=== PATIENT | male | born 1965 | race African-American/Black ===

== ENCOUNTER 2019-10-12 03:55 | Inpatient (IN) | payer OTHER ==
--- NOTE | 2019-10-12 05:44 | PDOC.FPRHP ---
- History of Present Illness Chief Complaint: Transfer COVID + History of Present Illness: Pt is a 54 yo male who presents by direct transfer from [facility] secondary to acute hypoxic respiratory failure secondary to suspected COVID-19. Symptoms started a week ago with non-productive cough, fever, SOB. He was seen [place] and swabbed 3 days ago at [facility]. At this time he was started on codeine cough suppressant and prednisone. Fever has been intermittently high with max about 101F. He denies N/V, diarrhea. He came in today due to his shortness of breath and waking up at night coughing. He endorsed fatigue as well. His and son tested positive to COVID as well, unsure how they were exposed. They have been trying to isolate from one another. He denies being short of breath with conversation, but has to take pauses when talking. He does feel better with NC oxygen that was started at [facility]. Denies any chest pain or palpitations, abdominal pain. Patient does not have a PCP. Of note at [facility], patient had recorded temp of 100.8F oral, satting 86% on RA. ED Course: At [facility] he was administered albuterol with minimal relief. - Allergies/Adverse Reactions Allergies Allergy/AdvReac Type Severity Reaction Status Date / Time No Known Allergies Allergy Verified 10/12/19 05:44 - Home Medications Medication Instructions Recorded Confirmed Type No Known 10/12/19 10/12/19 History - History PMHx: denies PSHx: denies FHx: denies Social: denies alcohol, tobacco, drug use Allergies: denies - Review of Systems General: reports: fever/chills, weight/appetite/sleep changes, fatigue Eyes: denies: eye pain, vision changes ENT: denies: nasal congestion, rhinorrhea Respiratory: reports: cough, congestion, shortness of breath, exercise intolerance Cardiovascular: denies: chest pain, palpitation, edema Gastrointestinal: denies: nausea, vomiting, diarrhea, constipation Genitourinary: denies: dysuria, polyuria Skin: denies: rashes, lesions Musculoskeletal: denies: pain, stiffness Neurological: denies: numbness, syncope Psychological: denies: anxiety, depression - Vital signs BP: 139/85 HR: 109 RR: 42 Tmax: 99.3 Pox: 94% on 3L Wt: 88 kg - Physical Exam Constitutional: NAD, awake, alert and oriented HEENT: normocephalic and atraumatic, PERRLA Neck: FROM, no JVD Heart: RRR, normal S1/S2, no murmurs/rubs/gallops, pulses present -Lungs: Diminished air movement bilaterally, gets SOB when talking in multiple sentences Abdomen: soft, non-tender, bowel sounds present Musculoskeletal: normal structure, normal tone Neurological: no focal deficit, CN II-XII intact Skin: no rash/lesions -Skin: dry mucous membranes Heme/Lymphatic: no purpura, no petechia Psychiatric: normal mood and affect, good judgment and insight FMR H&P: Results - Labs Result Diagrams: 10/12/19 08:17 10/12/19 08:17 - Radiology Interpretation Chest x-ray Status: report reviewed by me Additional comment: Diffuse patchy infiltrates bilateral - greatest peripherally c/w COVID19 FMR H&P: A/P - Problem List (1) Acute respiratory failure with hypoxia Status: Acute Code(s): J96.01 - ACUTE RESPIRATORY FAILURE WITH HYPOXIA (2) Person under investigation for COVID-19 Status: Acute Code(s): Z20.828 - CONTACT W AND EXPOSURE TO OTH VIRAL COMMUNICABLE DISEASES - Plan Pt is a 54 yo male w/o significant PMH here for acute hypoxic respiratory failure secondary to Covid: Acute Hypoxic Respiratory Failure 2/2 Suspected COVID 19 Patient with + COVID exposures with multiple family members in the house. Swabbed at [facility] earlier this week. CXR showing patchy opacities in both lungs greatest peripherally. - Will try to acquire COVID test results from [facility], but if result will take too long to obtain can re-swab here. - Monitor O2 saturations - ABG pending. RR recorded as 42. May need to be upgraded to Bipap pending ABG. - Supplement oxygen as needed. If patient decompensates, consider pulm consult - LDH, Procalcitonin, Ferritin, CRP, Lactic Acid, D-dimer pending - EKG pending, patient mildly tachy. Will also give a 1L bolus and continue on mIVF as patient dry on exam. - Consider repeating CXR tomorrow - Start azithromycin, continue steroids as patient very tight. - Tylenol PRN for fever - Droplet precautions Diet: Reg Fluids: maintenance VTE: th lovenox Code: Full Dispo: admit to medical inpatient Case discussed with Dr. Rivers The above was scribed by Dr. Kishan Bailey and edited by Renita Gonzales PGY2. Patient seen and examined by Renita Gonzales PGY2. FMR H&P: Upper Level - Plan Date/Time: 10/12/19 8242 I, [], have evaluated this patient and agree with findings/plan as outlined by digital media intern resident. Pertinent changes/additions are listed here. Addendum - Attending - Attending Attestation Date/Time: 10/12/19 1006 I personally evaluated the patient and discussed the management with Dr. Bailey /Christian. I agree with the History, Examination, Assessment and Plan documented above with any addition or exceptions noted below.
[2019-10-12] MEDS ORDERED: Acetaminophen 325 MG TAB PO PRN (06:11)
[2019-10-12] MEDS ORDERED: Lactated Ringer's 1,000 ML IV SCH ×2 (06:15→13:45)
[2019-10-12] MEDS ORDERED: Azithromycin 250 MG TAB PO SCH (06:30)
[2019-10-12] MEDS: Lactated Ringer's 1,000 ML IV SCH ×2 (07:40→18:40)
[2019-10-12 08:29] LABS: #Basophils 0.1 thou/uL (0.0-0.2); #Lymphocytes 0.5 thou/uL (1.20-3.40); #Monocytes 0.2 thou/uL (0.11-0.59); #Neutrophils 5.2 thou/uL (1.40-6.50); %Basophils 1.5 % (0.0-1.0); %Eosinophils 0.1 % (0.0-10.0); %Lymphocytes 8.3 % (21.0-51.0); %Monocytes 3.7 % (0.0-10.0); %Neutrophils 86.4 % (42.0-75.0); Hemoglobin 12.8 g/dL (14.0-18.0); Mean Corpuscular Hemoglobin 27.6 pg (27.0-31.0); Mean Corpuscular Volume 86.5 fL (78.0-98.0); Mean Platelet Volume 9.8 fL (7.4-10.4); Platelet Count 150 thou/uL (130-400); RBC Distribution Width 11.3 % (11.5-14.5); Red Blood Cell (RBC) Count 4.64 mill/uL (4.70-6.10)
[2019-10-12 08:46] LABS: Lactic Acid 1.6 mmol/L (0.5-2.2)
[2019-10-12 08:51] LABS: ALT (SGPT) 36 U/L (8-55); AST (SGOT) 41 U/L (5-34); Albumin 3.8 g/dL (3.5-5.0); Alkaline Phosphatase 78 U/L (40-110); Anion Gap 17 mmol/L (10-20); BUN (Urea Nitrogen) 10 mg/dL (8.4-25.7); Bilirubin, Total 0.7 mg/dL (0.2-1.2); Calc. Creatinine Clearance 115 mL/min (70-130); Calcium 8.9 mg/dL (7.8-10.44); Carbon Dioxide 23 mmol/L (22-29); Chloride 97 mmol/L (98-107); Estimated GFR-MDRD Greater than 90; Globulin 3.5 g/dL (2.4-3.5); Glucose 311 mg/dL (70-105); Potassium 4.5 mmol/L (3.5-5.1); Protein, Total 7.3 g/dL (6.0-8.3); Sodium 132 mmol/L (136-145)
[2019-10-12] MEDS ORDERED: Enoxaparin Sodium 40 MG/0.4 ML SYRINGE SC SCH ×2 (09:00)
[2019-10-12] MEDS ORDERED: Dexamethasone 4 MG in Sodium Chloride 0.9% 50 ML IVPB SCH (09:00)
[2019-10-12] MEDS: Enoxaparin Sodium 100 MG/ML SYRINGE SC SCH ×2 (10:32→19:27)
[2019-10-12 17:38] LABS: Hemoglobin A1c 9.5 % (4.0-6.0)
[2019-10-12] MEDS ORDERED: Dextrose 50% Abboject 50 ML SYRINGE SLOW IVP PRN (17:48)
[2019-10-12] MEDS ORDERED: Dextrose 5% in Water 1,000 ML IV PRN (17:48)
[2019-10-12] MEDS: Dexamethasone 4 mg/ml Vial SLOW IVP SCH (19:28)
[2019-10-12] MEDS: HumaLOG 300 UNITS/3 ML VIAL SC PRN (19:54)
[2019-10-13] MEDS: Lactated Ringer's 1,000 ML IV SCH ×2 (02:05→07:27)
[2019-10-13 04:49] LABS: #Lymphocytes 0.8 thou/uL (1.20-3.40); #Monocytes 0.8 thou/uL (0.11-0.59); #Neutrophils 5.5 thou/uL (1.40-6.50); %Basophils 0.1 % (0.0-1.0); %Eosinophils 0.3 % (0.0-10.0); %Lymphocytes 11.1 % (21.0-51.0); %Neutrophils 77.5 % (42.0-75.0); Hemoglobin 11.9 g/dL (14.0-18.0); Mean Platelet Volume 9.7 fL (7.4-10.4); Platelet Count 200 thou/uL (130-400); RBC Distribution Width 11.2 % (11.5-14.5); Red Blood Cell (RBC) Count 4.24 mill/uL (4.70-6.10)
[2019-10-13 05:12] LABS: ALT (SGPT) 42 U/L (8-55); AST (SGOT) 40 U/L (5-34); Albumin 3.5 g/dL (3.5-5.0); Alkaline Phosphatase 74 U/L (40-110); Anion Gap 18 mmol/L (10-20); BUN (Urea Nitrogen) 16 mg/dL (8.4-25.7); Bilirubin, Total 0.5 mg/dL (0.2-1.2); Calc. Creatinine Clearance 102 mL/min (70-130); Calcium 8.8 mg/dL (7.8-10.44); Carbon Dioxide 22 mmol/L (22-29); Chloride 100 mmol/L (98-107); Estimated GFR-MDRD Greater than 90; Globulin 3.4 g/dL (2.4-3.5); Glucose 346 mg/dL (70-105); Potassium 4.7 mmol/L (3.5-5.1); Protein, Total 6.9 g/dL (6.0-8.3); Sodium 135 mmol/L (136-145)
[2019-10-13] MEDS: HumaLOG 300 UNITS/3 ML VIAL SC PRN ×4 (06:26→19:50)
[2019-10-13] MEDS ORDERED: Enoxaparin Sodium 100 MG/ML SYRINGE SC SCH (06:49)
--- NOTE | 2019-10-13 06:49 | PDOC.FM ---
- Subjective Subjective: Feeling much better today. Denies SOB, wearing O2. - Objective MAR Reviewed: Yes Vital Signs & Weight: Vital Signs (12 hours) Temp Pulse Resp BP Pulse Ox 10/13/19 02:05 98.1 F 94 37 H 138/85 93 L 10/12/19 19:37 98.8 F 103 H 39 H 141/85 H 94 L Weight Weight 88.677 kg I&O: 10/11/19 10/12/19 10/13/19 06:59 06:59 06:59 Intake Total 6828 Output Total 3275 Balance 3553 Result Diagrams: 10/13/19 04:32 10/13/19 04:32 Phys Exam - Physical Examination Constitutional: NAD HEENT: moist MMs Neck: supple Respiratory: no wheezing, clear to auscultation bilateral Cardiovascular: RRR Gastrointestinal: soft, non-tender Musculoskeletal: no edema Neurological: moves all 4 limbs Psychiatric: normal affect, A&O x 3 Skin: normal turgor Dx/Plan - Plan Plan: 54yo previously healthy male admitted for acute hypoxic respiratory failure secondary to viral pneumonia Acute Hypoxic Respiratory Failure 2/2 Suspected COVID 19 - Patient with multiple + COVID exposures. - COVID swab pending. Continue isolation precautions - Trend D-dimer - Continue Azithromycin and Decadron - Tylenol PRN for fever Diabetes Mellitus, new dx - A1c 9.5% - Start Metformin and Lantus 10U daily - Accuchecks and SSI. - Diabetes education DVT ppx: Lovenox BID Code Status: Full
[2019-10-13] MEDS: Enoxaparin Sodium 40 MG/0.4 ML SYRINGE SC SCH ×2 (08:11→19:47)
[2019-10-13] MEDS: Dexamethasone 4 mg/ml Vial SLOW IVP SCH ×2 (08:11→19:48)
[2019-10-13] MEDS: metFORMIN XR 500 MG TAB PO SCH (08:11)
[2019-10-13] MEDS ORDERED: Azithromycin 250 MG TAB PO SCH (09:00)
[2019-10-13] MEDS ORDERED: Insulin Glargine 10 UNITS in Pre-Filled Syringe 1 EACH SC SCH (09:00)
--- NOTE | 2019-10-13 11:45 | PRG ---
DATE OF SERVICE: 10/13/2019 Please see the note from Dr. Evelin Webber, for which I agree. This is a patient, who comes in for COVID assumed infection. Multiple COVID infections in his household and symptom-peng. COVID seems to be positive as far as the symptoms anyway, but the test is still pending. Chest x-ray shows diffuse infiltrates. He is on azithromycin. We will have him started on Decadron. Not requiring too much oxygen in general, improving on exam, not too bad as far as his lungs go, so we will continue supportive management. Awaiting on the COVID test results. Job ID: [id number]
[2019-10-13 13:16] LABS: SARS-CoV-2 MS2 Positive; SARS-CoV-2 N Gene Positive; SARS-CoV-2 S Gene Positive; SARS-CoV-2 orf1ab Positive
[2019-10-14 05:32] LABS: Anion Gap 20 mmol/L (10-20); Carbon Dioxide 22 mmol/L (22-29); Chloride 99 mmol/L (98-107); Potassium 4.1 mmol/L (3.5-5.1); Sodium 137 mmol/L (136-145)
[2019-10-14 05:33] LABS: ALT (SGPT) 74 U/L (8-55); AST (SGOT) 69 U/L (5-34); Albumin 3.6 g/dL (3.5-5.0); Alkaline Phosphatase 74 U/L (40-110); BUN (Urea Nitrogen) 14 mg/dL (8.4-25.7); Bilirubin, Total 0.6 mg/dL (0.2-1.2); Calc. Creatinine Clearance 105 mL/min (70-130); Calcium 8.7 mg/dL (7.8-10.44); Estimated GFR-MDRD Greater than 90; Globulin 3.4 g/dL (2.4-3.5); Glucose 315 mg/dL (70-105)
[2019-10-14] MEDS: HumaLOG 300 UNITS/3 ML VIAL SC PRN ×4 (06:13→21:03)
--- NOTE | 2019-10-14 07:00 | PDOC.FM ---
- Subjective Subjective: Overnight Mr Jackson began satting 80's on 6L NC therefore was upgraded to HFNC. He reports he is feeling much more comfortable and less SOB. He is interested in receiving convalescent plasma and remdesivir. - Objective MAR Reviewed: Yes Vital Signs & Weight: Vital Signs (12 hours) Temp Pulse Resp BP Pulse Ox 10/14/19 03:35 98.5 F 90 34 H 146/95 H 99 10/13/19 23:27 98.6 F 93 31 H 158/97 H 98 10/13/19 21:33 94 L 10/13/19 19:50 97.9 F 103 H 28 H 137/88 91 L Weight Weight 85.366 kg I&O: 10/12/19 10/13/19 10/14/19 06:59 06:59 06:59 Intake Total 6828 6320 Output Total 3275 7815 Balance 2303 1710 Result Diagrams: 10/13/19 04:32 10/14/19 04:39 Phys Exam - Physical Examination Constitutional: NAD HEENT: moist MMs Neck: supple Respiratory: no wheezing, clear to auscultation bilateral Cardiovascular: RRR Gastrointestinal: soft Musculoskeletal: no edema Neurological: moves all 4 limbs Psychiatric: normal affect, A&O x 3 Skin: no rash Dx/Plan - Plan Plan: 54yo previously healthy male admitted for acute hypoxic respiratory failure secondary to viral pneumonia Acute Hypoxic Respiratory Failure 2/2 COVID 19 - Continue isolation precautions - Trend D-dimer - Continue Decadron. D/c Azithromycin low suspicion for bacterial pneumonia - Consulted Pulm and ID for Remdesivir - Starting process for convalescent serum - Monitor respiratory status. Now on HFNC - Tylenol PRN for fever Diabetes Mellitus, new dx - A1c 9.5% - Start Metformin. Titrate Insulin up based on BG. Likely elevated due to steroids. - Accuchecks and SSI. - Diabetes education DVT ppx: Lovenox BID Code Status: Full
[2019-10-14] MEDS ORDERED: Insulin Glargine 15 UNITS in Pre-Filled Syringe 1 EACH SC SCH (09:00)
[2019-10-14] MEDS: Dexamethasone 4 mg/ml Vial SLOW IVP SCH ×2 (09:10→19:29)
[2019-10-14] MEDS: Enoxaparin Sodium 40 MG/0.4 ML SYRINGE SC SCH ×2 (09:10→19:29)
[2019-10-14] MEDS: metFORMIN XR 500 MG TAB PO SCH (09:10)
[2019-10-14] MEDS: Insulin Glargine 22 UNITS in Pre-Filled Syringe 1 EACH SC SCH (09:10)
--- NOTE | 2019-10-14 16:58 | PRG ---
DATE OF SERVICE: 10/14/2019 The patient was seen, evaluated, discussed, and examined with the residents. Please see Evelin Webber' progress note, for which I agree. No major changes on this gentleman. Still, I am going to likely put him on Remdesivir, continue the Decadron, and also considering convalescent plasma for him. We will get the ID and tower air traffic control specialist involved to help us with that. Unfortunately, oxygen requirement is still fairly high and so his inflammatory markers are still elevated. We will watch him closely to make sure he does not decompensate respiratory peng. Job ID: [id number]
--- NOTE | 2019-10-14 19:32 | CON ---
DATE OF CONSULTATION: 10/14/2019 CHIEF COMPLAINT: COVID pneumonia. HISTORY OF PRESENT ILLNESS: Mr. Jackson is a 54-year-old male who developed symptoms a week prior to presentation including cough, fever and shortness of breath. His and son had developed COVID prior to him. He had tests done [facility] 3 days prior to admission and was started on a cough suppressant and prednisone. He reports that his maximum fever was 101 Fahrenheit. He has had no nausea, vomiting, or diarrhea. There is no description of loss of smell or taste. His symptoms continued and he presented back to [facility]. On the day of admission, he was hypoxemic with saturation of 86% on room air and was again febrile to 100.8 degrees. He is transferred directly here for admission. Since admission, his COVID test has returned positive. He has been on Lovenox, steroids and azithromycin. He was receiving Ventolin tablets for unclear indication. His COVID test has returned positive and the Pulmonary service is consulted regarding remdesivir. SOCIAL HISTORY: The patient is a 54-year-old gentleman. He has no smoking history. ALLERGIES: HE HAS NO HOME MEDICATION ALLERGIES. PAST MEDICAL HISTORY: He has no history of diabetes, COPD, or heart disease. REVIEW OF SYSTEMS: Remarkable as above. FAMILY HISTORY: Noncontributory. PHYSICAL EXAMINATION: VITAL SIGNS: Blood pressure currently 146/90, afebrile, temperature 98.5, heart rate is 88, respirations 22, saturation is 97%, although he is currently on high-flow nasal cannula at 60% FiO2. GENERAL: He is mildly tachypneic and anxious. He has no oral Anjana. LUNGS: Bilateral rales without wheezing. HEART: Regular rate and rhythm. ABDOMEN: Soft. There is no organomegaly. He has no edema. LABORATORY DATA: Electrolytes today include sodium 137, potassium 4.1, chloride 99, CO2 is 22, BUN 14, creatinine 0.95, and glucose is 300. AST is 69, ALT is 74. His chest x-ray has shown bilateral interstitial infiltrates. IMPRESSION: 1. COVID pneumonia with high O2 demands currently at 60% high-flow nasal cannula. The patient does not have a contraindication to remdesivir. He may in fact meet inclusion criteria for convalescent serum. 2. Diabetes. The patient denied a history of diabetes on admission, but blood sugar is 300 even in the setting of oral steroids is not normal and would reflect an underlying risk factor for COVID infection. RECOMMENDATIONS: The patient is a candidate for remdesivir. He may additionally be a candidate for convalescent serum. At this point, we will continue his steroids, although he needs aggressive diabetic control. His condition is tenuous given his high FiO2 demands and he may well show further deterioration and could require ventilatory support. Pulmonary Service will continue to follow. Job ID: [id number]
--- NOTE | 2019-10-14 19:56 | CON ---
DATE OF CONSULTATION: 10/14/2019 REASON FOR CONSULTATION: COVID pneumonia. HISTORY OF PRESENT ILLNESS: A 54-year-old man no past medical history and familial transmission of COVID infection, both the and son. None of them had to be admitted, but he developed symptoms, he is not sure if it was in the 15 or of this month, he had initially cough, fever, and dyspnea and is given prednisone and codeine cough suppressant because dyspnea became worse, he eventually came to be admitted. No headaches. No chest pain or abdominal pain. No diarrhea. No genitourinary symptoms. Initial findings; O2 saturations were 94 on 3 L, temperature 99.3, heart rate 109, and respiratory rate 42. Lungs with diminished air movements bilaterally. Had difficulty in speaking in full sentences because of dyspnea. Abdomen was unremarkable. Other findings; white cell count 6.0, hemoglobin 12.8, and platelets 150 with 86% neutrophils. D-dimer is less than 0.27. Sodium 132, creatinine 0.9, AST 41, ALT 36, alkaline phosphatase 78, albumin 3.8, and COVID was detected on 26. He was swabbed outside the hospital. I do not know what the results of that were. Currently, Mr. Jackson is receiving high-flow O2 in the observation unit. He is awake, alert, and he is coughing intermittently, but no sputum production. REVIEW OF SYSTEMS: Other 10-point review of systems remarkable for dyspnea, but no other positive results. PAST MEDICAL HISTORY: Otherwise no past medical history reported. ALLERGIES: HE HAS NO KNOWN DRUG ALLERGIES. CURRENT MEDICATION LIST: Includes 1. Decadron. 2. Remdesivir. 3. Metformin. FAMILY HISTORY: COVID pneumonia in both and son, did not require admission and they are recovering now. PHYSICAL EXAMINATION: VITAL SIGNS: Temperature has been normal throughout the hospital stay here. Blood pressure 140/90, pulse 88, respirations are down to 22 per minute. He is on high-flow O2, saturating 97. HEENT: His ocular movements conjugate. LUNGS: Symmetric air entry with no wheezing or crackles. HEART: S1 and S2. Regular rate. ABDOMEN: Soft, not distended or tender. No ascites. No bladder distention. NEURO: Nonfocal. EXTREMITIES: No edema. Pulses 1+ in dorsalis pedis. LABORATORY DATA: Repeat labs showed white cell count 7.0, hemoglobin 11.9, and platelets 200. ASSESSMENT: COVID-19 pneumonia, severe on remdesivir and Decadron and enoxaparin b.i.d. Continue monitoring D-dimer, ferritin, and CRP every other day. Continue monitoring O2 sats and O2 supplementation requirements. Job ID: [id number] MTDD
[2019-10-15 05:17] LABS: ALT (SGPT) 62 U/L (8-55); AST (SGOT) 30 U/L (5-34); Albumin 3.6 g/dL (3.5-5.0); Alkaline Phosphatase 73 U/L (40-110); Anion Gap 14 mmol/L (10-20); BUN (Urea Nitrogen) 16 mg/dL (8.4-25.7); Bilirubin, Total 0.8 mg/dL (0.2-1.2); Calc. Creatinine Clearance 114 mL/min (70-130); Calcium 8.9 mg/dL (7.8-10.44); Carbon Dioxide 28 mmol/L (22-29); Chloride 98 mmol/L (98-107); Estimated GFR-MDRD Greater than 90; Globulin 3.5 g/dL (2.4-3.5); Glucose 296 mg/dL (70-105); Potassium 4.1 mmol/L (3.5-5.1); Protein, Total 7.1 g/dL (6.0-8.3); Sodium 136 mmol/L (136-145)
[2019-10-15] MEDS: HumaLOG 300 UNITS/3 ML VIAL SC PRN ×4 (05:32→21:49)
--- NOTE | 2019-10-15 07:19 | CON ---
DATE OF CONSULTATION: 10/14/2019 ADDENDUM: I have discontinued the Ventolin tablets. They certainly have the potential to exacerbate his heart rate and do not have a defined benefit in the setting of COVID pneumonia. If he needs bronchodilator therapy, I would recommend inhaled albuterol/nebulized albuterol. Job ID: [id number]
--- NOTE | 2019-10-15 07:38 | PDOC.FM ---
- Subjective Subjective: Patient with increasing O2 requirement, now on HFNC. Received convalescent plasma earlier this morning around 0430. Remdesevir started yesterday evening. - Objective Vital Signs & Weight: Vital Signs (12 hours) Temp Pulse Pulse Resp BP BP Pulse Ox 10/15/19 04:40 98.4 F 77 22 H 148/81 H 98 10/15/19 03:15 98.5 F 64 20 135/84 99 10/15/19 02:51 97.8 F 69 22 H 149/94 H 100 10/14/19 23:37 99.6 F 82 24 H 146/89 H 97 10/14/19 20:00 98.2 F 87 20 160/90 H 96 Weight Weight 85.366 kg I&O: 10/14/19 10/15/19 10/16/19 06:59 06:59 06:59 Intake Total 6320 3040 Output Total 3775 3350 Balance 2545 -310 Result Diagrams: 10/13/19 04:32 10/16/19 04:22 Phys Exam - Physical Examination Constitutional: NAD (exam per Dr. 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 D/c Azithromycin low suspicion for bacterial pneumonia - Consulted Pulm and ID for Remdesivir, appreciate recs - Convalescent serum received on 10/14 - Remdesevir started on 10/13 - Monitor respiratory status. Now on HFNC - Tylenol PRN for fever #Diabetes Mellitus, new dx - A1c 9.5% - Start Metformin. Titrate Insulin up based on BG. Likely some elevation due to steroids. - Accuchecks and SSI. - Diabetes education Diet: HH DVT ppx: Lovenox BID Code Status: Full Dispo: Guarded, admitted to inpatient on telemetry unit. Continue to monitor respiratory status. Titrate insulin. Anticipate discharge in >48 hours. Addendum - Attending - Attending Attestation Date/Time: 10/15/19 9890 I personally evaluated the patient and discussed the management with Dr. Gallo I agree with the History, Examination, Assessment and Plan documented above with any addition or exceptions noted below - Patient without complaints. COugh improved. Afebrile VSS. A/P: 1) Acute hypoxic resp failure due to COVID 19- continue HFNC and wean as tolerated; continue remdesivir. 2) DM- continue to adjust insulin.
[2019-10-15] MEDS: Insulin Glargine 22 UNITS in Pre-Filled Syringe 1 EACH SC SCH (08:26)
[2019-10-15] MEDS: Dexamethasone 4 mg/ml Vial SLOW IVP SCH ×2 (08:27→19:14)
[2019-10-15] MEDS: Enoxaparin Sodium 40 MG/0.4 ML SYRINGE SC SCH ×2 (08:27→19:14)
[2019-10-15] MEDS: metFORMIN XR 500 MG TAB PO SCH (08:27)
--- NOTE | 2019-10-15 10:15 | RAD ---
EXAM: CHEST ONE VIEW HISTORY: Follow-up evaluation. Covid positive. COMPARISON: 08/11/2015 FINDINGS: Cardiac silhouette is at the upper limits of normal and magnified by projection. Pulmonary vasculatur e is within normal limits. Linear and patchy parenchymal densities are seen in the left midlung zone and left lung base with suggestion of minimal linear densities at the right lung base. Findings may be related to pneumonia and possibly atypical pneumonia. Viral pneumonitis is a possibility. No pleural effusion is seen. No other interval change. IMPRESSION: Interval development of patchy parenchymal opacities at the left lung base with linear densities at t he right lung base. Findings may be related to pneumonia and possibly atypical pneumonia. Viral pneumonitis is also a differential consideration.
--- NOTE | 2019-10-15 14:50 | PRG ---
DATE OF SERVICE: 10/15/2019 SUBJECTIVE: Khadar Jackson is a 54-year-old gentleman. OBJECTIVE: VITAL SIGNS: Temperature 98, pulse 79, respirations 32, sats are 98% on high-flow 60% on 50 L, and blood pressure 150/87. CHEST: X-ray did not look very impressive. He has a small left lower lobe infiltrate. No wheezing. No crackles. CARDIAC: Normal S1, S2. No masses. ABDOMEN: No gallops. PLAN: He has already received steroids, remdesivir. I will give him a bag of coalescent plasma if he has not already had one. Eventually, try to titrate his O2 down and switch him over to oral prednisone. I would empirically put him on doxycycline for 10 days. Call Pulmonary if needed. Job ID: [id number]
[2019-10-16 05:22] LABS: ALT (SGPT) 47 U/L (8-55); AST (SGOT) 19 U/L (5-34); Albumin 3.3 g/dL (3.5-5.0); Alkaline Phosphatase 67 U/L (40-110); Anion Gap 11 mmol/L (10-20); BUN (Urea Nitrogen) 19 mg/dL (8.4-25.7); Bilirubin, Total 0.7 mg/dL (0.2-1.2); Calc. Creatinine Clearance 108 mL/min (70-130); Calcium 8.5 mg/dL (7.8-10.44); Carbon Dioxide 29 mmol/L (22-29); Chloride 99 mmol/L (98-107); Estimated GFR-MDRD Greater than 90; Glucose 303 mg/dL (70-105); Potassium 4.2 mmol/L (3.5-5.1); Protein, Total 6.3 g/dL (6.0-8.3); Sodium 135 mmol/L (136-145)
[2019-10-16] MEDS: HumaLOG 300 UNITS/3 ML VIAL SC PRN ×3 (05:41→17:33)
--- NOTE | 2019-10-16 07:51 | PDOC.FM ---
- Subjective Subjective: Patient doing well this morning. States he feels like his breathing is about the same as yesterday. Expresses no complaints. - Objective MAR Reviewed: Yes Vital Signs & Weight: Vital Signs (12 hours) Temp Pulse Resp BP Pulse Ox 10/16/19 04:35 97.9 F 62 22 H 123/81 100 10/16/19 02:53 99 10/16/19 00:00 98.5 F 62 22 H 125/78 99 Weight Weight 85.366 kg I&O: 10/15/19 10/16/19 10/17/19 06:59 06:59 06:59 Intake Total 3040 3500 Output Total 3350 3100 Balance -310 400 Result Diagrams: 10/13/19 04:32 10/16/19 04:22 Phys Exam - Physical Examination Constitutional: NAD HEENT: moist MMs Neck: no JVD, supple Respiratory: no wheezing, clear to auscultation bilateral Cardiovascular: RRR, no significant murmur Gastrointestinal: soft, no distention Musculoskeletal: no edema, pulses present Neurological: normal sensation, moves all 4 limbs Psychiatric: normal affect, A&O x 3 Skin: no rash Dx/Plan (1) Acute respiratory failure with hypoxia Code(s): J96.01 - ACUTE RESPIRATORY FAILURE WITH HYPOXIA Status: Acute (2) COVID-19 Code(s): U07.1 - COVID-19 Status: Acute (3) Diabetes mellitus Code(s): E11.9 - TYPE 2 DIABETES MELLITUS WITHOUT COMPLICATIONS Status: Acute Qualifiers: Diabetes mellitus type: type 2 Diabetes mellitus halfway insulin use: without halfway use Diabetes mellitus complication status: with hyperglycemia Qualified Code(s): E11.65 - Type 2 diabetes mellitus with hyperglycemia - Plan Plan: 54yo previously healthy male admitted for acute hypoxic respiratory failure secondary to viral pneumonia #Acute Hypoxic Respiratory Failure 2/2 COVID 19 - Continue isolation precautions - Trend D-dimer-has been <0.27 for several days - Continue Decadron. D/c Azithromycin low suspicion for bacterial pneumonia - Consulted Pulm and ID for Remdesivir, appreciate recs -started on Doxycycline empiric 10 day course -attempt to transition to oral steroid - Convalescent serum received on 10/14 - Remdesevir started on 10/13 - Monitor respiratory status. Now on HFNC. Will attempt to wean down O2 requirement today - Tylenol PRN for fever #Diabetes Mellitus, new dx - A1c 9.5% - Start Metformin. Titrate Insulin up based on BG. Likely some elevation due to steroids. - Accuchecks and SSI. - Diabetes education Diet: HH DVT ppx: Lovenox BID Code Status: Full Dispo: Stable, admitted to inpatient on telemetry unit. Continue to monitor respiratory status. Titrate insulin. Anticipate discharge in >48 hours. Addendum - Attending - Attending Attestation Date/Time: 10/16/19 0007 I personally evaluated the patient and discussed the management with Dr. Gallo I agree with the History, Examination, Assessment and Plan documented above with any addition or exceptions noted below- Patient without complaints. Feeling better. Afebrile VSS. A/P: 1) Acute hypoxic resp failure secondary to COVID pneumonia - weaned from HFNC to NC; continue to monitor; continue remdesivir. 2) Newly diagnosed DM- continue to adjust insulin; DM education.
[2019-10-16] MEDS: Dexamethasone 4 mg/ml Vial SLOW IVP SCH ×2 (09:04→19:29)
[2019-10-16] MEDS: metFORMIN XR 500 MG TAB PO SCH (09:04)
[2019-10-16] MEDS: Enoxaparin Sodium 40 MG/0.4 ML SYRINGE SC SCH ×2 (09:04→19:29)
[2019-10-16] MEDS: Insulin Glargine 30 UNITS in Pre-Filled Syringe 1 EACH SC SCH (10:08)
--- NOTE | 2019-10-16 11:48 | PRG ---
DATE OF SERVICE: 10/16/2019 SUBJECTIVE: Khadar Jackson is a 54-year-old gentleman. OBJECTIVE: VITAL SIGNS: Temperature 98, pulse 60, respiratory rate 18, his sats are 100% on 50% FiO2, high-flow. Apparently, he is tolerating blood pressure 120/77. CHEST: No wheezing, no crackles. CARDIAC: Normal S1 and S2. No gallops. ABDOMEN: No masses. LABORATORY DATA: Unremarkable. His ferritin level was elevated, is coming down. His C-reactive protein is down to 2.4. ASSESSMENT: Coronavirus positive pneumonia, status post remdesivir, steroids, doxycycline, has improved. I would continue supportive care, PT and download his O2. Once stable, he can discharge to home. His x-ray is not very impressive. Job ID: [id number]
[2019-10-16] MEDS: Doxycycline 100 MG CAP PO SCH (19:29)
[2019-10-17 04:02] VITALS: BMI 26.1
[2019-10-17 05:19] LABS: ALT (SGPT) 47 U/L (8-55); AST (SGOT) 23 U/L (5-34); Albumin 3.2 g/dL (3.5-5.0); Alkaline Phosphatase 66 U/L (40-110); Anion Gap 10 mmol/L (10-20); BUN (Urea Nitrogen) 18 mg/dL (8.4-25.7); Bilirubin, Total 0.8 mg/dL (0.2-1.2); Calc. Creatinine Clearance 104 mL/min (70-130); Calcium 8.4 mg/dL (7.8-10.44); Carbon Dioxide 29 mmol/L (22-29); Chloride 100 mmol/L (98-107); Estimated GFR-MDRD Greater than 90; Globulin 2.9 g/dL (2.4-3.5); Glucose 255 mg/dL (70-105); Potassium 4.1 mmol/L (3.5-5.1); Protein, Total 6.1 g/dL (6.0-8.3); Sodium 135 mmol/L (136-145)
[2019-10-17] MEDS: HumaLOG 300 UNITS/3 ML VIAL SC PRN ×3 (05:27→21:21)
[2019-10-17] MEDS ORDERED: Dexamethasone 4 MG TAB PO SCH ×2 (09:00)
[2019-10-17] MEDS ORDERED: Insulin Glargine 35 UNITS in Pre-Filled Syringe 1 EACH SC SCH (09:30)
[2019-10-17] MEDS: Doxycycline 100 MG CAP PO SCH ×2 (09:33→20:56)
[2019-10-17] MEDS: metFORMIN XR 500 MG TAB PO SCH (09:33)
[2019-10-17] MEDS: Enoxaparin Sodium 40 MG/0.4 ML SYRINGE SC SCH ×2 (09:33→20:55)
--- NOTE | 2019-10-17 10:25 | PDOC.FM ---
- Subjective Subjective: Patient doing well this morning. Has no complaints. Says he has been frequently walking around his room with no issues with breathing and denies any SOB. No current complaints. - Objective Vital Signs & Weight: Vital Signs (12 hours) Temp Pulse Resp BP BP Pulse Ox 10/17/19 07:23 98.7 F 63 18 127/81 95 10/17/19 02:32 97.6 F 66 26 H 125/80 93 L Weight Weight 79.923 kg I&O: 10/16/19 10/17/19 10/18/19 06:59 06:59 06:59 Intake Total 3500 3050 Output Total 3100 1260 Balance 400 1790 Result Diagrams: 10/13/19 04:32 10/17/19 04:46 Phys Exam - Physical Examination Constitutional: NAD HEENT: moist MMs, sclera anicteric Neck: no JVD, supple, full ROM Respiratory: no wheezing, clear to auscultation bilateral Cardiovascular: RRR, no significant murmur Musculoskeletal: no edema, pulses present Neurological: non-focal, normal sensation, moves all 4 limbs Psychiatric: normal affect, A&O x 3 Dx/Plan (1) Acute respiratory failure with hypoxia Code(s): J96.01 - ACUTE RESPIRATORY FAILURE WITH HYPOXIA Status: Acute (2) COVID-19 Code(s): U07.1 - COVID-19 Status: Acute (3) Diabetes mellitus Code(s): E11.9 - TYPE 2 DIABETES MELLITUS WITHOUT COMPLICATIONS Status: Acute Qualifiers: Diabetes mellitus type: type 2 Diabetes mellitus chcf insulin use: without adjunct faculty for medical terminology use Diabetes mellitus complication status: with hyperglycemia Qualified Code(s): E11.65 - Type 2 diabetes mellitus with hyperglycemia - Plan Plan: 54yo previously healthy male admitted for acute hypoxic respiratory failure secondary to viral pneumonia #Acute Hypoxic Respiratory Failure 2/2 COVID 19 - Continue isolation precautions - Trend D-dimer-has been <0.27 for several days - Continue Decadron. D/c Azithromycin low suspicion for bacterial pneumonia - Consulted Pulm and ID for Remdesivir, appreciate recs -started on Doxycycline empiric 10 day course -transitioned to oral Decadron today - Convalescent serum received on 10/14 - Remdesevir started on 10/13, last dose tomorrow - Monitor respiratory status. Has been on room air since 10/15 PM. - Tylenol PRN for fever #Diabetes Mellitus, new dx - A1c 9.5% - Start Metformin. Titrate Insulin up based on BG. Likely some elevation due to steroids. - Accuchecks and SSI. - Diabetes education Diet: HH DVT ppx: Lovenox BID Code Status: Full Dispo: Stable, admitted to inpatient on telemetry unit. Continue to monitor respiratory status. Titrate insulin. Anticipate discharge tomorrow after last dose of Remdesevir. Addendum - Attending - Attending Attestation Date/Time: 10/17/19 9595 I personally evaluated the patient and discussed the management with Dr. Gallo I agree with the History, Examination, Assessment and Plan documented above with any addition or exceptions noted below - Patient without complaints. Sitting up in chair. Denies any SOB. Afebrile VSS. A/P: 1) Acute hypoxic resp failure secondary to COVID 19 pneumonia- resolved; weaned to room air today; will monitor O2 sats and check O2 on ambulation, 2) COVID pneumonia- will complete remdesivir tomorrow; anticipate d/c home if remains stable. 3) DM- continue current insulin.
[2019-10-17] MEDS: Insulin Glargine 30 UNITS in Pre-Filled Syringe 1 EACH SC SCH (11:04)
--- NOTE | 2019-10-17 11:30 | PRG ---
DATE OF SERVICE: SUBJECTIVE: Khadar Jackson is a 54-year-old male. OBJECTIVE: VITAL SIGNS: Saturations are 95% on room air, respirations 18, temperature 97, blood pressure 127/81. GENERAL: Doing better, less short of breath, cough. CHEST: No wheezing or crackles. CARDIAC: Normal S1, S2. No gallops. ABDOMEN: No masses. LABORATORY DATA: C-reactive protein is down to 1.62 from 19.2. ASSESSMENT: Coronavirus positive pneumonia on remdesivir, steroids, doxycycline. PLAN: Switch over to oral prednisone. Continue doxy once the remdesivir is finished. If he remains without any low-flow O2, he could be discharged home. Job ID: [id number]
[2019-10-18] MEDS: HumaLOG 300 UNITS/3 ML VIAL SC PRN ×2 (04:45→11:59)
[2019-10-18 05:54] LABS: ALT (SGPT) 55 U/L (8-55); AST (SGOT) 24 U/L (5-34); Albumin 3.1 g/dL (3.5-5.0); Alkaline Phosphatase 69 U/L (40-110); Anion Gap 10 mmol/L (10-20); BUN (Urea Nitrogen) 14 mg/dL (8.4-25.7); Bilirubin, Total 0.5 mg/dL (0.2-1.2); Calc. Creatinine Clearance 112 mL/min (70-130); Calcium 8.4 mg/dL (7.8-10.44); Carbon Dioxide 29 mmol/L (22-29); Chloride 101 mmol/L (98-107); Estimated GFR-MDRD Greater than 90; Glucose 204 mg/dL (70-105); Potassium 3.5 mmol/L (3.5-5.1); Protein, Total 6.1 g/dL (6.0-8.3); Sodium 136 mmol/L (136-145)
--- NOTE | 2019-10-18 07:02 | PDOC.FM ---
- Subjective Subjective: Patient doing well this morning, states ready to go home. Has no complaints, states breathing has been much better in last 2 days. Will plan to return home with family and continue to take isolation precautions. - Objective MAR Reviewed: Yes Vital Signs & Weight: Vital Signs (12 hours) Temp Pulse Resp BP Pulse Ox 10/18/19 04:44 98.2 F 64 24 H 131/86 93 L 10/18/19 00:36 98.8 F 66 26 H 129/76 93 L 10/17/19 20:55 98.3 F 66 24 H 148/89 H 93 L Weight Weight 79.923 kg I&O: 10/17/19 10/18/19 10/19/19 06:59 06:59 06:59 Intake Total 3050 850 Output Total 1260 Balance 1790 850 Result Diagrams: 10/13/19 04:32 10/18/19 05:13 Phys Exam - Physical Examination Constitutional: NAD HEENT: moist MMs, sclera anicteric Neck: no JVD, supple, full ROM Respiratory: no wheezing, clear to auscultation bilateral Cardiovascular: RRR, no significant murmur Musculoskeletal: no edema, pulses present Neurological: non-focal, normal sensation, moves all 4 limbs Psychiatric: normal affect, A&O x 3 Skin: no rash, normal turgor Dx/Plan (1) Acute respiratory failure with hypoxia Code(s): J96.01 - ACUTE RESPIRATORY FAILURE WITH HYPOXIA Status: Acute (2) COVID-19 Code(s): U07.1 - COVID-19 Status: Acute (3) Diabetes mellitus Code(s): E11.9 - TYPE 2 DIABETES MELLITUS WITHOUT COMPLICATIONS Status: Acute Qualifiers: Diabetes mellitus type: type 2 Diabetes mellitus terminal manager insulin use: without terminal manager use Diabetes mellitus complication status: with hyperglycemia Qualified Code(s): E11.65 - Type 2 diabetes mellitus with hyperglycemia - Plan Plan: 54yo previously healthy male admitted for acute hypoxic respiratory failure secondary to viral pneumonia #Acute Hypoxic Respiratory Failure 2/2 COVID 19 - Continue isolation precautions - Trend D-dimer-has been <0.27 for several days - Continue Decadron. D/c Azithromycin low suspicion for bacterial pneumonia - Consulted Pulm and ID for Remdesivir, appreciate recs -started on Doxycycline empiric 10 day course (10/15-10/25) -transitioned to oral Decadron on 10/16 - Convalescent serum received on 10/14 - Remdesevir started on 10/13, last dose 10/17 - Monitor respiratory status. Has been on room air since 10/15 PM. - Tylenol PRN for fever #Diabetes Mellitus, new dx - A1c 9.5% - Start Metformin. Titrate Insulin up based on BG. Likely some elevation due to steroids. - Accuchecks and SSI. - Diabetes education Diet: HH DVT ppx: Lovenox BID Code Status: Full Dispo: Stable, admitted to inpatient on telemetry unit. Continue to monitor respiratory status. Anticipate discharge later today after last dose of Remdesevir. Addendum - Attending - Attending Attestation Date/Time: 10/18/19 5027 I personally evaluated the patient and discussed the management with Dr. Gallo I agree with the History, Examination, Assessment and Plan documented above with any addition or exceptions noted below - Patient without complaints. Denies any SOB; sitting up in chair. Afebrile VSS. A/P: Acute hypoxic resp failure secondary to COVID pneumonia- resolved; weaned off oxygen. 2) COVID pneumonia- completed remdensicir course today; plan to d/c home today. 3) Newly dx'd DM- continue current meds and adjust in out patient setting.
[2019-10-18] MEDS ORDERED: predniSONE 20 MG TAB PO SCH (08:00)
[2019-10-18] MEDS ORDERED: Insulin Glargine 35 UNITS in Pre-Filled Syringe 1 EACH SC SCH (09:00)
[2019-10-18] MEDS: Doxycycline 100 MG CAP PO SCH (09:46)
[2019-10-18] MEDS: metFORMIN XR 500 MG TAB PO SCH (09:47)
[2019-10-18] MEDS: Enoxaparin Sodium 40 MG/0.4 ML SYRINGE SC SCH (09:47)
[2019-10-18 12:06] VITALS: BP 125/63; TEMP 98.6
--- NOTE | 2019-10-19 09:14 | PQF ---
[employer] Operator Crystal Reports Winform Viewer VINI FELICIANO AMANDA MD *roxanne [id number] [address] [place] [address] [id number] CLINICAL DOCUMENTATION CLARIFICATION FORM: POST DISCHARGE Addendum to original discharge summary date: ____ Late entry note date: __ DATE: 10/12/19 ATTN: Jossie Mena Please exercise your independent, professional judgment in responding to the clarification form. Clinical indicators are provided on the bottom of this form for your review Can you please further clarify the diagnosis of the patient? Please check appropriate box(es): [ x ] Sepsis [ ] COVID19 without sepsis [x ] Other diagnosis please specify COVID [ ] Unable to determine In addition, please specify: Present on Admission (POA): [ x ] Yes [ ] No [ ] Unable to determine For continuity of documentation, please document condition throughout progress notes and discharge summary. Thank You. CLINICAL INDICATORS - SIGNS / SYMPTOMS / LABS / RESULTS AND LOCATION IN MR H and P pg.1- fever has been intermittently high with max about 101F H and P pg.2- BP 139/85, HR 109, RR 42, T 99.3 H and P pg.30- acute respiratory failure with hypoxia Consult Dr. Miles pg.2- COVID-19 pneumonia, severe on remdesivir and Decadron RISK FACTORS / RESULTS AND LOCATION IN MR COVID19- Hospitalist PN pg.2 Viral Pneumonia- Hospitalist PN pg.2 DM with hyperglycemia- PN pg.2 TREATMENTS / RESULTS AND LOCATION IN MR Supplemental oxygen- H and P pg.3 Chest X ray 10/[address] Miles 10/[address] Robin IV Fluids- MAR Azithromycin 500mg PO- MAR Dexamethasone 4mg IV- MAR Doxycycline 100mg PO-MAR (This form is maintained as a part of the permanent medical record) 2014 [employer]. All Rights Reserved [email or web address]
--- NOTE | 2019-10-20 23:20 | DIS ---
DATE OF ADMISSION: 10/12/2019 DATE OF DISCHARGE: 10/18/2019 ADMITTING ATTENDING: Jossie Mena MD DISCHARGE ATTENDING: Korin Sotomayor MD CONSULTS: 1. Pulmonology. 2. Infectious Disease. PROCEDURES: Chest x-ray on October 15, 2019: Interval development of patchy parenchymal opacities at the left lung base with linear densities at the right lung base. Findings may be related to pneumonia. PRIMARY DIAGNOSES: Acute hypoxic respiratory failure secondary to COVID-19 pneumonia. SECONDARY DIAGNOSIS: Type 2 diabetes, new diagnosis. DISCHARGE MEDICATIONS: 1. Doxycycline 100 mg p.o. b.i.d. for an additional eight-day course. 2. Prednisone 20 mg p.o. daily for an additional eight-day course. 3. Lantus 35 units subcu q.a.m. 4. Glucagon 1 mg IM p.r.n. for hypoglycemia. 5. Accu-Chek monitoring system with test strips. 6. Metformin 1000 mg p.o. b.i.d. DISCONTINUED MEDICATIONS: None. HISTORY OF PRESENT ILLNESS/HOSPITAL COURSE: The patient is a 54-year-old male, who presented as a direct transfer from [facility] on October 12, 2019 due to acute hypoxic respiratory failure secondary to suspected COVID-19. The patient's symptoms started approximately seven days prior to admission and included a nonproductive cough, fever, and shortness of breath. The patient was seen at [facility] and swabbed three days prior to admission at [facility]. At that time, he was started on codeine cough suppressant and prednisone. The patient stated that his and his son both tested positive to COVID as well, unsure how they were exposed. Of note at [facility], the patient's vitals had a recorded temperature of 100.8 Fahrenheit oral and oxygen saturation of 86% on room air. The patient was admitted to the [facility] medical floor. He was started on supplemental oxygen via nasal cannula. Also started on azithromycin and Decadron overnight of October 13, 2019 to October 14, 2019. The patient acutely decompensated and began saturating in the 80s on 6 L of nasal cannula. Therefore, he was upgraded to high-flow nasal cannula. At that time, convalescent plasma and Remdesivir were ordered. These were started on October 15, 2019. The patient's respiratory status subsequently improved greatly. By the morning of October 17, 2019, the patient was able to walk around the room on room air with saturations from 93% to 96%. The patient remained in the hospital to complete his Remdesivir course. He was then discharged to home with courses of doxycycline and prednisone per Pulmonology recommendations. Of note on admission, the patient's hemoglobin A1c was found to be 9.5%. The patient denies any previous history of diabetes. The patient had Lantus titrated up to 35 units. He was discharged with prescriptions for Lantus and instructed that he would need to continue titrating insulin in outpatient setting. However, the patient called the hospital after he was discharged and stated he would be unable to afford these medications as it was over 1000 dollars for a 30-day supply. Discussed the use of metformin with the patient and need for close followup with a PCP. The patient in agreement to use metformin and instructed on its use. The patient provided with information to establish care at [facility] as the patient currently has no PCP. DISPOSITION: Stable. DISCHARGE INSTRUCTIONS: 1. Location: Home. 2. Diet: Diabetic. 3. Activity: As tolerated. 4. Follow up with [facility] in 3 to 5 days to establish care and for hospital followup. 5. Follow up with Dr. Miles in 2 to 3 weeks. Job ID: [id number]
== END 2019-10-18 14:45 | disposition home or self-care (01) | DRG 871 ==
LOC: 3SW 05:12 → OBSVTOIN 05:12 → 2SW 05:24
PROVIDERS: ADMIT Student in an Organized Health Care Education/Training Program; ATTEND Student in an Organized Health Care Education/Training Program
PROC: 8E0ZXY6 Isolation (ICD-10-PCS; principal; 2019-10-12)
PROC: 30233L1 Transfusion of Nonautologous Fresh Plasma into Peripheral Vein, Percutaneous Approach (ICD-10-PCS; 2019-10-15)
PROC: 30233K1 Transfusion of Nonautologous Frozen Plasma into Peripheral Vein, Percutaneous Approach (ICD-10-PCS; 2019-10-15)
DX: A41.89 Other specified sepsis (principal); U07.1 COVID-19; J12.89 Other viral pneumonia; J96.01 Acute respiratory failure with hypoxia; E11.65 Type 2 diabetes mellitus with hyperglycemia
CPT/HCPCS: 36415; 36416; 36430; 36600; 71045; 80053; 82728; 83036; 83605; 83615; 84145; 85025; 85379; 86140; 86850; 86900; 86901; 87635; 93005; 93010; J1100; J1650; J1815; J7512; J8540; U0003